=== PATIENT | female | born 1945 | race Caucasian/White ===

== ENCOUNTER 2018-04-10 05:28 | Day surgery (SDC) | payer MEDICARE, OTHER ==
[~2018-04-10 05:28] MED LIST: Sodium Chloride 0.9% 10 ML Syringe FLUSH PRN
[2018-04-10] MEDS ORDERED: Midazolam 1 MG/ML 2 ML SDV IV ONE (05:29)
[2018-04-10] MEDS ORDERED: fentaNYL 100 MCG/2 ML SDV IV ONE (05:29)
[2018-04-10] MEDS ORDERED: Midazolam 1 MG/ML 2 ML SDV ONE (06:19)
[2018-04-10] MEDS ORDERED: fentaNYL 100 MCG/2 ML SDV ONE (06:19)
[2018-04-10] MEDS: Dextrose 5%-0.45% NaCl 1,000 ML IV SCH (06:46)
[2018-04-10] MEDS: fentaNYL 100 MCG/2 ML SDV IV ONE ×2 (06:50)
[2018-04-10] MEDS: Midazolam 1 MG/ML 2 ML SDV IV ONE ×6 (06:51→07:00)
[2018-04-10 09:28] VITALS: BP 161/74
--- NOTE | 2018-04-10 14:25 | OR ---
DATE: 04/10/2018 PROCEDURE: Total colonoscopy. INSTRUMENT USED: CF-H180 AL Olympus video colonoscope. PREMEDICATIONS: Fentanyl 100 mcg intravenous, Versed 4 mg intravenous. Nasal O2 cannula. The procedure was done under pulse oximetry, BP recording, and panel monitor. INDICATION: Screening colonoscopic examination is done for detection of any polypoid lesions and removal, endoscopic hemostasis therapy if needed. DESCRIPTION OF PROCEDURE: Initial rectal exam was unremarkable. Rigid anoscopy was normal. The colonoscope was passed with ease. Numerous scattered diverticula were noted in the distal left colon along with the deformity. The scope was passed with ease up to the ileocecal area, photographs were taken of the normal-appearing cecum, identified by landmarks of appendiceal orifice and double-bulged ileocecal folds. No bleeding was noted from any of the visualized areas at the commencement of the examination. No stricture. No vascular ectasia. No large isolated ulcerations seen. No evidence of diffuse inflammatory bowel disease in the form of friability, contact bleeding, or ulcerations. No polyp or tumor mass identified. Probing the proximal sides of folds and flexures, using adequate distention and clearing up the stool material, withdrawal of the scope was made, cecum to rectum time over 6 minutes. No bleeding was noted from any of the visualized areas at the completion of examination. Bowel preparation was found to be adequate. IMPRESSION: Diverticulosis. The patient tolerated the procedure well. [facility] /[id number]
== END 2018-04-10 09:20 | disposition home or self-care (01) ==
LOC: DL.ENDO 05:28
PROVIDERS: ATTEND Internal Medicine Gastroenterology
DX: Z12.11 Encounter for screening for malignant neoplasm of colon (principal); K57.30 Diverticulosis of large intestine without perforation or abscess without bleeding; E11.9 Type 2 diabetes mellitus without complications; E78.5 Hyperlipidemia, unspecified; E73.9 Lactose intolerance, unspecified; E66.09 Other obesity due to excess calories; I10 Essential (primary) hypertension; I25.10 Atherosclerotic heart disease of native coronary artery without angina pectoris; I48.91 Unspecified atrial fibrillation; M19.90 Unspecified osteoarthritis, unspecified site; Z88.1 Allergy status to other antibiotic agents; Z88.2 Allergy status to sulfonamides; Z88.5 Allergy status to narcotic agent; Z88.8 Allergy status to other drugs, medicaments and biological substances
CPT/HCPCS: G0121; J2250; J3010; J7042